=== PATIENT | female | born 1990 | race Caucasian/White ===

== ENCOUNTER 2019-06-08 08:50 | Day surgery (SDC) | payer OTHER ==
[~2019-06-08] VITALS: Ht 170.2 cm; Wt 84.4 kg
[2019-06-08 09:29] VITALS: BP 128/83
[2019-06-08 11:18] VITALS: BP 135/98
== END 2019-06-08 11:50 | disposition home or self-care (01) ==
LOC: DS 08:50 → OR 11:00 → DS 11:50
DX: K62.5 Hemorrhage of anus and rectum (principal); K64.8 Other hemorrhoids; K63.89 Other specified diseases of intestine
CPT/HCPCS: 45378; J1200; J1610; J2250; J2310; J3010; J3490